=== PATIENT | female | born 1960 | race Caucasian/White ===

== ENCOUNTER 2017-12-17 11:31 | Day surgery (SDC) | payer OTHER, BC ==
[~2017-12-17 11:31] MED LIST: DEXAMETHASONE 1 MG TAB PO; GABAPENTIN 300 MG CAP PO; LACTATED RINGER'S 1,000 ML IV*; SUGAMMADEX SODIUM 200 MG/2 ML VIAL IV; TRANEXAMIC ACID 1,000 MG in DEXTROSE 5% 100 ML IVPB; traMADol 50 MG TAB PO
[2017-12-17] MEDS: traMADol 50 MG TAB PO (12:30)
[2017-12-17] MEDS: GABAPENTIN 300 MG CAP PO (12:30)
[2017-12-17] MEDS: DEXAMETHASONE 1 MG TAB PO (12:30)
[2017-12-17] MEDS ORDERED: MIDAZOLAM 1 MG/ML 2 ML INJ (12:33)
[2017-12-17] MEDS ORDERED: DEXAMETHASONE 4 MG/ML 1 ML INJ (12:33)
[2017-12-17] MEDS ORDERED: NEOSTIGMINE 3 MG/3 ML SYRINGE (12:33)
[2017-12-17] MEDS ORDERED: PROPOFOL 20 ML (12:33)
[2017-12-17] MEDS ORDERED: FENTAnyl 50 MCG/ML VIAL (12:33)
[2017-12-17] MEDS ORDERED: GLYCOPYRROLATE 0.4 MG INJ (12:33)
[2017-12-17] MEDS ORDERED: ROCURONIUM 50 MG INJ (12:33)
[2017-12-17] MEDS ORDERED: CEFAZOLIN 1 GM INJ (12:33)
[2017-12-17] MEDS ORDERED: ONDANSETRON 4 MG INJ (12:33)
[2017-12-17] MEDS ORDERED: ROPIVACAINE 0.5 % 30 ML VIAL (12:35)
[2017-12-17] MEDS ORDERED: hydrALAzine 20 MG INJ IV (14:30)
[2017-12-17] MEDS ORDERED: MEPERIDINE 25 MG INJ IV (14:30)
[2017-12-17] MEDS ORDERED: HYDROmorphONE (0.2 MG/ML) 10ML SYG IV ×3 (14:30)
[2017-12-17] MEDS ORDERED: MIDAZOLAM 1 MG/ML 2 ML INJ IV (14:30)
[2017-12-17] MEDS ORDERED: EPHEDrine SULFATE 50 MG/5 ML SYG IV (14:30)
[2017-12-17] MEDS ORDERED: DIPHENHYDRAMINE 50 MG INJ IV (14:30)
[2017-12-17] MEDS ORDERED: IPRATROPIUM (NEB) 0.5 MG/2.5 ML AMP HHN (14:30)
[2017-12-17] MEDS ORDERED: LABETALOL HCL 20MG INJ (14:30)
[2017-12-17] MEDS ORDERED: ALBUTEROL 0.083% (NEB) 2.5 MG/3 ML AMP HHN (14:30)
[2017-12-17] MEDS ORDERED: LABETALOL HCL 20MG INJ IV (14:30)
[2017-12-17] MEDS ORDERED: FENTAnyl 50 MCG/ML VIAL IV ×3 (14:30)
[2017-12-17] MEDS ORDERED: TRIMETHOBENZAMIDE 100 MG/ML VIAL IM (14:30)
[2017-12-17] MEDS: ONDANSETRON 4 MG INJ IV (15:42)
== END 2017-12-17 17:25 | disposition home or self-care (01) ==
LOC: SDS 11:31
DX: M75.41 Impingement syndrome of right shoulder (principal); M75.101 Unspecified rotator cuff tear or rupture of right shoulder, not specified as traumatic; S46.211D Strain of muscle, fascia and tendon of other parts of biceps, right arm, subsequent encounter; X58.XXXD Exposure to other specified factors, subsequent encounter; M13.811 Other specified arthritis, right shoulder
CPT/HCPCS: 29824